=== PATIENT | male | born 1945 | race Caucasian/White ===

== ENCOUNTER 2017-06-09 06:05 | Day surgery (SDC) | payer MEDICARE ==
[2017-06-09] MEDS ORDERED: Lactated Ringers 1,000 ML IV SCH (06:30)
--- NOTE | 2017-06-09 10:20 | OP ---
SURGERY DATE: 06/09/17 SURGERY TIME: 724 PREOPERATIVE DIAGNOSIS: 1. SCREENING COLONOSCOPY. POSTOPERATIVE DIAGNOSIS: 1. NORMAL COLON. PROCEDURE: 1. Colonoscopy. SURGEON: Dr. Ranjith Abbott. ANESTHESIA: MAC by Shiva Butt CRNA. SPECIMENS: None. ESTIMATED BLOOD LOSS: None. DESCRIPTION OF PROCEDURE: After informed written consent was obtained, the patient was taken to the endoscopy suite. He underwent monitored anesthesia and a digital rectal exam showed normal sphincter tone and no internal lesions. The scope was inserted in the rectum and sequentially the entire colonic mucosa was traversed. The level of the cecum was reached and verified with direct visualization of the ileocecal valve. Upon withdrawal, careful mucosal inspection revealed no gross mucosal abnormalities. Prior to withdrawal, retroflexion was performed and was within normal limits. The scope was removed and the patient was transferred to the recovery room in excellent condition.
[2017-06-09 11:35] VITALS: O2SAT 99
[2017-06-09 11:43] VITALS: BP 164/86; PULSE 677
[2017-06-09] MEDS ORDERED: Ketamine HCl 50 MG/ML IJ ONE (14:30)
[2017-06-09] MEDS ORDERED: DIPRIVAN 200 MG/20 ML IV ONE (14:30)
== END 2017-06-09 09:50 | disposition home or self-care (01) ==
LOC: SDC 06:05
PROVIDERS: ATTEND Family Medicine
PROC: 0DJD8ZZ Inspection of Lower Intestinal Tract, Via Natural or Artificial Opening Endoscopic (ICD-10-PCS; principal; 2017-06-09)
DX: Z12.11 Encounter for screening for malignant neoplasm of colon (principal)
CPT/HCPCS: 00810; 99100; J2704